=== PATIENT | female | born 1990 | race Caucasian/White ===

== ENCOUNTER 2019-10-28 16:25 | Outpatient (CLI) | payer OTHER, SELFPAY ==
--- NOTE | ~2019-10-28 | XR_ITS ---
XR chest 2V DATE: 10/28/2019 17:01 INDICATION: Intermittent shortness of breath for 3 months. Chest congestion. TECHNIQUE: PA and lateral views COMPARISON: None FINDINGS: Normal heart size. No hilar or mediastinal enlargement. Bilateral hyperinflation. No pulmon gabbi infiltrate or consolidation, pleural effusion or pulmonary vascular congestion or pneumothorax. I ncluded skeletal structures are unremarkable. IMPRESSION: Bilateral hyperinflation; otherwise no active cardiac pulmonary disease Reviewed, dictated and finalized at location A. IMPRESSION: Bilateral hyperinflation; otherwise no active cardiac pulmonary dis ease
== END 2019-10-28 16:26 | disposition home or self-care (01) ==
LOC: ANHIMG 16:32
PROVIDERS: PCP Nurse Practitioner; Visit Provider Nurse Practitioner
DX: R06.02 Shortness of breath (principal); R91.8 Other nonspecific abnormal finding of lung field
CPT/HCPCS: 71046

== ENCOUNTER 2019-12-02 14:29 | Outpatient (CLI) | payer OTHER, SELFPAY ==
--- NOTE | 2019-12-05 09:39 | P.PCNPFT_ITS ---
PFT Interpretation PFT Interpretation: DOS: 12/02/2019 REQUESTING: Alexander Mccracken NP REASON FOR TESTING: Shortness of breath PULMONARY FUNCTION TESTS Results are reliable and reproducible. Spirometry: FEV1 90%, 2.93 L. FVC is 106%, normal. FEV1% is decreased. FEF25- 75% is 51%. After bronchodilator, there is a non-statistically significant increase in FEV1 7%, and a 22% increase in small airways flows. Lung volumes: TLC 108%, RV 96%, normal. Increased airway resistance 218%. Diffusion: DLCO 86%, normal. Flow volume loop: Normal. ] IMPRESSION: Small airways pattern with increased airway resistance, non- statistiocally significant response to bronchodilator. In the proper clinical setting, this pattern may be hospital sales representative of asthma. The limited response to bronchodilator should not preclude use as it may be helpful in management. Gala Hull MD
== END 2019-12-02 14:30 | disposition home or self-care (01) ==
PROVIDERS: PCP Nurse Practitioner; Visit Provider Nurse Practitioner
DX: R06.02 Shortness of breath (principal); R94.2 Abnormal results of pulmonary function studies
CPT/HCPCS: 94060; 94726; 94729